=== PATIENT | female | born 1945 | race Two or more races ===

== ENCOUNTER 2024-07-08 08:42 | Outpatient (AMB) | payer OTHER, MEDICAID, SELFPAY ==
[2024-07-08 09:03] VITALS: BP 135/78; PULSE 50; RESP 18; TEMP 36.6; O2SAT 97; BMI 37.7
--- NOTE | 2024-07-08 09:03 | PD.ORTHCLVIS ---
Vital signs 07/08/24 09:03 Height 1.52 m Height Method Stated Weight 87.09 kg Weight Measurement Method Standing Scale BMI 37.7 BP 135/78 H Blood Pressure Source Automatic Cuff Blood Pressure Location Right Upper Arm Position Sitting Respiration 18 Pulse 50 L Pulse Source Monitor Temp 97.8 F Temp Source Temporal Artery Scan Pulse Oximetry (%) 97 Oxygen Delivery Method Room Air Med/Allergies Allergies & Medications Allergies acetaminophen [From Tylenol-Codeine #3] Allergy (Mild, Verified 07/08/24 09:05) Headache codeine [From Tylenol-Codeine #3] Allergy (Mild, Verified 07/08/24 09:05) Headache Medication Reconciliation atorvastatin 40 mg tablet 40 mg PO QDAY 01/15/24 [History Confirmed 07/08/24] carvedilol 12.5 mg tablet 12.5 mg PO Q12H 01/15/24 [History Confirmed 07/08/24] diclofenac sodium 1 % topical gel 2 g topical QID 01/15/24 [History Confirmed 07/08/24] lisinopril 10 mg-hydrochlorothiazide 12.5 mg tablet 1 tab PO QDAY 01/15/24 [History Confirmed 07/08/24] doxycycline hyclate 100 mg tablet 100 mg PO BID #14 tabs 01/16/24 [Rx Confirmed 07/08/24] gabapentin 300 mg capsule 300 mg PO .qhs #30 caps 01/16/24 [Rx Confirmed 07/08/24] meloxicam 7.5 mg tablet 7.5 mg PO QDAY #30 tabs 01/16/24 [Rx Confirmed 07/08/24] sennosides 8.6 mg-docusate sodium 50 mg tablet (Senna-S) 1 tab-cap PO QDAY #30 tabs 01/16/24 [Rx Confirmed 07/08/24] acetaminophen 500 mg tablet (Acetaminophen Extra Strength) 1,000 mg (2 x 500 mg) PO Q6H PRN pain #90 tabs 02/01/24 [Rx Confirmed 07/08/24] oxycodone 5 mg tablet 5 mg PO Q6H PRN pain #28 tabs 02/01/24 [Rx Confirmed 07/08/24] Subjective Visit Visit for: post op #3 and knee Immunization / Flu Flu Vaccine in the Last 12 Months: Yes Flu Vaccine Exclusion Criteria: Already Received History of Present Illness Chief complaint: 3 month follow up Date of injury / onset of symptoms: 01/15/2024 Patient is 2.5 months status post right total knee replacement. She is doing well. She has minimal pain. She is happy with her progress. Personal History Occupation: retired [place] flag PMH: none Pain Pain level (0-10): 5 Pain duration: comes and goes Pain location: anterior and other (specify) (around ankle ) Pain quality: sharp, dull and aching Pain timing: increases with activity Associated signs & symptoms: none Ambulatory data Ambulatory device: cane Treatments Improvement with previous injections: No Improvement with PT: No Improvement with NSAIDS: n/a Review of Systems Review of Systems: All systems negative unless otherwise noted in HPI. Exam Exam Patient is in no acute distress and is cooperative with the examination today. Breathing is nonlabored. Patient has a normal mood and affect. Bilateral extremities were evaluated and demonstrates sensation intact to light touch. Palpable pedal pulses are present. No significant edema is present. Bilateral hips were examined. The patient has no pain with log roll of the hips. Internal rotation to 30 degrees and external rotation to 30 degrees is painless. Negative FADIR. Left knee was examined today. The left knee is in reasonable alignment. Range of motion from 0-120 degrees. Knee is stable to varus and valgus as well as AP translation with <5mm. Patient has a negative Mc[place]. There is no pain with patellofemoral compression and no crepitus noted. The knee is nontender to palpation. Right knee incision is clean dry intact. Range of motion is 0 to 100 degrees Assessment and Plan Problem List (1) Unilateral primary osteoarthritis, right knee: Status: Acute Plan: 78-year-old female with right knee pain and right knee osteoarthritis Status post right total knee replacement. She is doing well. She is doing well with outpatient therapy. We will see her back in 6 months. (2) Pain in right knee: Status: Acute Advanced Care Planning Discussion Advance care planning discussed with:: patient Office Procedures GNS Level of Care Nursing/Assessment Patient Status: Established Patient Nursing Assessment/Reassesment: Medication Reconciliation, Update PMH in EMR and Vital Signs Coordination of Care: Complex Care and Chronic Disease 1-5, Education Complex Pt/Fam, Consent,records obtained, informed consent, Results/Orders obtained and Staff clarify orders Special Needs: Language special needs Established Patient Charge Established Patient Point Assignment: 95 Established Patient Point Charge: EP Level 3 (80-115) Past Medical History Past Medical History Have you ever been diagnosed with any of the following: Neurological Problems Seizures: No Head Trauma: Yes (fell from 5 steps, 2003, hit head) Cardiology Problems Hypercholesterolemia: Yes Congestive Heart Failure: No Hypertension: Yes Varicose Veins: Yes Respiratory Problems Chronic Obstructive Pulmonary Disease (COPD): No Smoking: No Smoking Cessation Counseling: No Smoking Exposure: No Tobacco Use: No Stomache/Intestinal Problems Hepatitis: No Obesity: Yes Genital/Urinary Problems Renal Disease: No Reproductive Problems Pelvic Inflammatory Disease: No Previous Pregnancies: Yes Musculoskeletal Problems Arthritis: Yes Endocrine Problems Diabetes Mellitus Type 1: No Diabetes Mellitus Type 2: No Other Problems Hospitalization: No Shingles: No Blood Transfusions: No Blood Transfusion Reaction: No Anesthesia Reactions: Yes (nausea/vomitting) Chicken Pox: Yes Measles: Yes Cancer: No
== END 2024-07-08 09:29 | disposition home or self-care (01) ==
LOC: HODSRG 08:42
PROVIDERS: PCP Internal Medicine; Referring Provider Internal Medicine; Supervising Provider Orthopaedic Surgery Adult Reconstructive Orthopaedic Surgery; Visit Provider Orthopaedic Surgery Adult Reconstructive Orthopaedic Surgery
DX: M17.11 Unilateral primary osteoarthritis, right knee (principal); M25.561 Pain in right knee; I10 Essential (primary) hypertension; E78.00 Pure hypercholesterolemia, unspecified; Z96.651 Presence of right artificial knee joint
CPT/HCPCS: 99213; G0463